=== PATIENT | male | born 1985 | race Caucasian/White ===

== ENCOUNTER → 2019-02-07 | Outpatient (CLI) | payer BC ==
--- NOTE | 2019-02-07 22:49 | CONS ---
CONSULTATION This is a consultation note for sleep apnea. HISTORY OF PRESENT ILLNESS: This is a 33-year-old male patient diagnosed having obstructive sleep apnea five years ago through the sleep center at [facility]. The patient was told that he has mild obstructive sleep apnea. AHI of 6 and he is was offered CPAP. The patient used CPAP for around 2-3 years and approximately a year ago, he quit the treatment as the patient did not have the appropriate supplies including the nose mask. I think he is using an AirFit N20 medium-size nose mask. As for the CPAP setting pressure setting this unknown as the patient did not bring his CPAP machine with him today. In general, he is quite symptomatic. He is having snoring, witnessed apneas and grinding of the teeth. He is waking up tired and fatigued during the day. He goes to bed between 9 to 10 p.m., wakes up at 6 a.m. in the morning. Averaging about 7-8 hours of sleep. Hurricane Score is at 9. No recent weight gain or weight loss. He has chronic anxiety and depression. Currently on Paxil. He is taking Lipitor for hyperlipidemia. No history of any coronary artery disease. Cardiac arrhythmias. Nonsmoker. No history of any substance abuse. No head trauma. No other complaints otherwise for now. PAST MEDICAL HISTORY: Obstructive sleep apnea, hyperlipidemia and chronic generalized anxiety disorder and depression. PAST SURGICAL HISTORY: None. DRUG ALLERGIES: Drug allergies are not known. OUTPATIENT MEDICATION: Include Lipitor and Paxil. SOCIAL HISTORY: The patient is a nonsmoker. No history of alcohol. No history of IV drugs. FAMILY HISTORY: Negative for sleep apnea. Positive for hyperlipidemia in his parents. REVIEW OF SYSTEMS: 14-point review of system was done and positive findings are mentioned above in history of present illness. No history of insomnia. No choking sensation at nighttime. No nocturia. Occasionally wakes up gasping for air. No restlessness in lower extremities. No sweating. No anxiety or panic attacks. No palpitations. No heartburn. He has history of depression and anxiety, currently on Paxil. He has no problems with memory and concentration. 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 He sleeps on his in different positions mainly on his side to watch TV. His weight has been stable. No utilization excessive caffeinated beverages. No history of motor vehicle accident because of feeling drowsy or sleepy. PHYSICAL EXAMINATION: BP 125/59, pulse 60, respirations 16, temperature 98.1 saturation 97% on room air. Weight is 175, height is 5 feet 9 inches, neck size 15.5 inches, BMI 25.8 Hurricane Score is at 9. General appearance: Calm, comfortable. Head is atraumatic, normocephalic. NECK: Supple. Mallampati class 3. There is no goiter or neck masses. Lungs: Clear to auscultation. HEART: Sounds regular rate and rhythm. Normal S1, S2. No S3, S4. No murmurs. ABDOMEN: Soft, nontender. No organomegaly. EXTREMITIES: No edema. No cyanosis or clubbing. NEUROLOGIC: A and O x3. No focal neurological deficits. PSYCHIATRIC: Negative for active depression for now. He has been treated for anxiety. SKIN: Negative for wounds or ulceration. IMPRESSION: 1. Obstructive sleep apnea. Mild, based on the sleep study that was done at [facility] back in 2014. Utilized CPAP therapy for many years and currently is off the treatment. 2. Hypersomnia, Hurricane score of 9, note that the patient is currently off treatment. 3. Anxiety/depression on Paxil. 4. Hyperlipidemia on Lipitor. PLAN: 1. Encourage weight loss. 2. Implement good sleep hygiene measures. 3. Average 7-8 hours of sleep at night. 4. I offered this patient an AirFit N20 nose mask medium size. The patient will be going back to use his CPAP unit. He has a functional machine at home. He will bring his machine 3 months from now to the Sleep Center for me to check his treatment response and compliancy. Based on this, we will renew all of his CPAP orders and he will establish himself here in our sleep center for the future sleep apnea treatment needs. MMODL / IJN: [id number] /
== END | disposition home or self-care (01) ==
LOC: SLEEP 16:16
PROVIDERS: ATTEND Internal Medicine Critical Care Medicine
DX: G47.33 Obstructive sleep apnea (adult) (pediatric) (principal); G47.63 Sleep related bruxism; R53.83 Other fatigue; F32.9 Major depressive disorder, single episode, unspecified; E78.5 Hyperlipidemia, unspecified; F19.10 Other psychoactive substance abuse, uncomplicated; F41.1 Generalized anxiety disorder; Z99.89 Dependence on other enabling machines and devices; Z79.899 Other long term (current) drug therapy
CPT/HCPCS: 99211

== ENCOUNTER → 2019-05-02 | Outpatient (CLI) | payer BC ==
--- NOTE | 2019-05-02 12:19 | PN ---
PROGRESS NOTE This is a 34-year-old male patient with history of obstructive sleep apnea that was diagnosed at [facility]. The patient is coming in today with his CPAP unit for me to check and assess his compliance and clinical response. He was diagnosed back in 2014. He has [employer]Med AirSense AutoSet unit which is set at a pressure of 6 cm of water. He continues to be extremely compliant. I offered him the AirFit N20 medium-size nose mask. Based on the compliance data, the patient has been averaging around 6.9 hours of CPAP use per night and his CPAP use for more than 4 hours is 27 out of 30 with an AHI of 3.9 while on treatment. He is averaging around 7 hours in bed. Wakening up refreshed and alert during the day. No recent weight gain or weight loss. No headaches. No altered mentation. No other significant events overnight otherwise for now. PHYSICAL EXAMINATION: His current vital signs are as follows: His temperature is 98.0. Pulse is 56, respirations 16, BMI 25, weight is 170, saturation 95% on room air. GENERAL APPEARANCE: Calm, comfortable, in no acute distress. HEAD: Atraumatic, normocephalic. NECK: Supple. There is no JVD. No goiter or neck masses. LUNGS: Clear to auscultation. HEART: Sounds regular rate and rhythm. Normal S1, S2. No S3. No murmurs. ABDOMEN: Soft, nontender. No organomegaly. EXTREMITIES: No edema. No cyanosis or clubbing. NEUROLOGIC: Alert and oriented x3. There is no focal neurological deficits. PSYCHIATRY: Negative for anxiety or depression. SKIN: Negative for any wounds or ulceration. IMPRESSION: Symptomatic obstructive sleep apnea. Currently well treated with a CPAP pressure of 6 cm of water. The patient has demonstrated excellent clinical response and compliancy. PLAN: 1. I checked the compliance data on this patient. 2. I am very pleased with the reports obtained from the CPAP unit. 3. Continue renewing the patient's CPAP supplies including the AirFit N20 nose mask. 4. All of his supplies will be renewed through [facility]. 5. We will continue to follow and make further recommendations based on the overall progress. 6. We will continue to follow. MMODL / IJN: [id number] /
== END ==
LOC: SLEEP 10:02
PROVIDERS: ATTEND Internal Medicine Critical Care Medicine
DX: G47.33 Obstructive sleep apnea (adult) (pediatric) (principal); Z99.89 Dependence on other enabling machines and devices

== ENCOUNTER → 2022-01-24 | Outpatient (CLI) | payer BC ==
[2022-01-24 11:23] LABS: Basophils # (A) 0.17 X 10*3/uL (0.00-0.10); Basophils % (A) 1.8 %; Eosinophils # (A) 3.35 X 10*3/uL (0.04-0.35); Eosinophils % (A) 35.5 %; HCT 43.7 % (39.6-50.0); HGB 14.4 g/dL (13.0-17.0); Immature Grans, Automated 0.5 %; Lymphocytes # (A) 2.19 X 10*3/uL (0.90-5.00); Lymphocytes % (A) 23.2 %; MCH 29.9 pg (27.0-32.0); MCV 90.7 fL (80.0-97.0); Mean Platelet Volume 9.7 fL (9.5-12.2); Monocytes # (A) 0.94 X 10*3/uL (0.20-1.00); NRBC Per 100 WBC 0 /100 WBCS (0.0-0.0); Neutrophils # (A) 2.73 X 10*3/uL (1.80-7.70); Platelet Count 289 X 10*3/uL (140-440); RBC 4.82 X 10*6/uL (4.40-5.60); RDW 13.2 % (11.5-14.5); WBC 9.43 X 10*3/uL (4.50-10.00)
[2022-01-24 11:50] LABS: ALT 55 U/L (10-49); AST 31 U/L (14-35); African American GFR (CKD) 113.7 (60.0-200.0); Albumin 4.6 g/dL (3.8-4.9); Albumin/Globulin Ratio 2.36 (1.60-3.17); Alkaline Phosphatase 76 U/L (41-126); BUN/Creat Ratio 15.09 Ratio (12.00-20.00); Blood Urea Nitrogen 14.7 mg/dL (9.0-27.0); Calcium 9.3 mg/dL (8.7-10.3); Carbon Dioxide 25.8 mmol/L (20.0-27.5); Chloride 104 mmol/L (96-109); Chol/HDL Ratio 4.21 Ratio; Creatine Kinase 169 U/L (35-257); Glucose 86 mg/dL (70-110); LDL Cholesterol,Calculated 93.3 mg/dL (0.0-131.0); Non-African American GFR(CKD) 98.1 (60.0-200.0); Potassium 4.2 mmol/L (3.5-5.5); Sodium 144 mmol/L (135-145); Total Protein 6.6 g/dL (6.2-8.2); VLDL Calculation 15.68 mg/dL (5.00-40.00)
== END | disposition home or self-care (01) ==
LOC: LABWHC1 08:59
PROVIDERS: ATTEND Family Medicine
DX: Z00.00 Encounter for general adult medical examination without abnormal findings (principal); E78.5 Hyperlipidemia, unspecified
CPT/HCPCS: 36415; 80053; 80061; 82550; 83036; 84443; 85025

== ENCOUNTER 2024-09-06 07:56 | Day surgery (SDC) | payer BC ==
[~2024-09-06 07:56] MED LIST: HYDROmorphone 0.5 MG/0.5 ML SYRINGE IVP PRN; NALOXONE 0.4 MG/ML 1 ML VIAL IV PRN
[2024-09-06] MEDS: IV FLUID CONTINUATION 1,000 ML IV ONE (08:10)
[2024-09-06] MEDS: OXYMETAZOLINE 0.05% NASL SPRAY 1 SPRAY BOTTLE EA NOSTRIL PRN (08:16)
[2024-09-06] MEDS: LACTATED RINGERS 1,000 ML IV SCH (08:32)
[2024-09-06] MEDS: ONDANSETRON 4 MG/2 ML VIAL IVP STA (08:33)
[2024-09-06] MEDS: DEXAMETHASONE SOD PHOSPHATE 4 MG/ML 1 ML VIAL IVP STA (08:34)
[2024-09-06] MEDS: FAMOTIDINE 20 MG/2 ML VIAL IV PRN (08:37)
[2024-09-06] MEDS ORDERED: PROPOFOL 10 MG/ML 20 ML VIAL IV ONE (09:09)
[2024-09-06] MEDS ORDERED: LIDOCAINE 1% INJ 10MG/ML (20 ML MDV) ONE (09:09)
[2024-09-06] MEDS ORDERED: SUCCINYLCHOLINE CHLORIDE 200 MG/10 ML VIAL IV ONE (09:09)
[2024-09-06] MEDS ORDERED: PHENYLEPHRINE-0.9% NACL SYG 1,000 MCG/10 ML SYRINGE ONE (09:09)
[2024-09-06] MEDS ORDERED: fentaNYL (PF) 50 MCG/ML 2 ML AMP ONE (09:09)
[2024-09-06] MEDS ORDERED: MIDAZOLAM 2 MG/2 ML VIAL ONE (09:09)
[2024-09-06] MEDS ORDERED: ePHEDrine 50 MG/ML 1 ML VIAL ONE (09:09)
[2024-09-06] MEDS: LIDOCAINE 1%-EPI 1:100,000 20 ML VIAL SUBMUCOSAL ONE ×2 (09:20→09:27)
[2024-09-06] MEDS: BACITRACIN ZINC 500 UNIT/GM OINT 28.4 GM TUBE TOPICAL ONE ×3 (09:20→09:43)
--- NOTE | 2024-09-06 09:49 | P.OP ---
Date of Procedure: 09/06/24 Preoperative Diagnosis: deviated nasal septum Inferior turbinate hypertrophy Postoperative Diagnosis: same Procedure(s) Performed: septoplasty Outfracture and submucous resection of the inferior turbinates Anesthesia: JENNYA Surgeon: Camden Pratt Estimated Blood Loss (ml): 5 Pathology: other (nasal septal bone and cartilage) Condition: stable Disposition: PACU Indications for Procedure: is a 39-year-old white male whose had difficulties with chronic nasal airway obstruction and congestion bilateral right greater than left which has not improved with medical management Operative Findings: nasal septum deviated to the right obstructing approximately 80% of nasal airway the inferior turbinates are moderately hypertrophied bilateral Description of Procedure: DESCRIPTION OF PROCEDURE: The patient was brought to the operative suite, placed in the supine position. The patient underwent induction of general anesthesia with oral endotracheal intubation without difficulty. The patient was prepped and draped in the usual aseptic fashion. 1% lidocaine with 1:100,000 epinephrine was infused submucosally on both sides of the nasal septum. While this was taking vasoconstrictive effect, the inferior turbinates were infractured with a Costilla elevator. Partial submucous resection of the inferior turbinates was performed with Coblation device ablating a portion of the submucosal soft tissue. The inferior turbinates were then outfractured with a Costilla elevator. A left hemitransfixion incision was then made through the mucoperichondrial. Mucoperiosteal flap on the left elevated. Bony cartilaginous junction was disarticulated and mucoperiosteal flap on the right was elevated. Bony nasoseptal deformity were removed with Abram forceps and an inferior cartilaginous strip was removed, leaving a full 1.5 cm caudal strut. Checking intranasally, this corrected the nasal septal deformities and the hemitransfixion incision was closed with running 4-0 chromic suture. The bilateral Harrell airway splints coated in bacitracin ointment were placed in the nasal cavities and sutured transseptally with 4-0 nylon suture. The patient was then suctioned in an orogastric fashion. The patient was allowed to emerge from general anesthesia, having tolerated the procedure well and was extubated in the operating suite, transferred to postoperative recovery area in satisfactory condition.
[2024-09-06 10:04] VITALS: TEMP 97.8
[2024-09-06] MEDS: HYDROcodone/APAP 5-325MG 1 EACH TAB PO STA (11:05)
[2024-09-06] MEDS: KETOROLAC 15 MG/ML 1 ML VIAL IVP STA (12:15)
[2024-09-06 13:17] VITALS: BP 140/90; PULSE 78; RESP 20
== END 2024-09-06 13:00 | disposition home or self-care (01) ==
LOC: OR 07:56
PROVIDERS: ATTEND Otolaryngology
CPT/HCPCS: 88300